=== PATIENT | female | born 1980 | race Caucasian/White ===

== ENCOUNTER → 2023-05-07 15:24 | Outpatient (CLI) | payer OTHER, SELFPAY ==
--- NOTE | ~2023-05-07 | XR_ITS ---
XR hip RT min 3V w AP pelvis DATE: 05/07/2023 16:01 INDICATION: Right hip pain for 2 months. No injury. TECHNIQUE: AP pelvis. AP and lateral views of right hip COMPARISON: None FINDINGS: An IUD overlies the mid pelvis. No fracture or dislocation, periosteal reaction or bone destruction or avascular necrosis of the righ t hip. Right hip joint space is well preserved and symmetric . The pubic symphysis and sacral iliac joints are intact. No pelvic fracture or bone destruction. IMPRESSION: Negative right hip Reviewed, dictated and finalized at location A. IMPRESSION: Negative right hip
== END ==
PROVIDERS: PCP Emergency Medicine; Visit Provider Emergency Medicine
DX: M25.551 Pain in right hip (principal)
CPT/HCPCS: 73502